=== PATIENT | male | born 1935 | race Caucasian/White ===

== ENCOUNTER 2019-12-07 16:59 | Inpatient (IN) | payer MEDICARE, OTHER ==
[~2019-12-07] VITALS: Ht 180.3 cm; Wt 75.1 kg
[2019-12-07 18:27] VITALS: BP 171/83
--- NOTE | 2019-12-07 18:47 | NUR ---
PATIENT IN WITH C/O RIGHT HIP PAIN AFTER FALLING THIS AFTERNOON. STATES HE WAS REACHING FOR SOMETHING WHEN HE LOST HIS BALANCE AND FELL, DENIES LOC. PATIENT LIVES BY HIMSELF, NO OBVIOUS DEFORMITY. FRIEND TO BEDSIDE.
--- NOTE | 2019-12-07 19:04 | NUR ---
PATIENT ISN'T SURE OF HIS HOME MEDICATIONS, HE USES [facility], I CALLED THE 1 800 NUMBER, WASN'T ABLE TO SPEAK WITH ANYONE. PATIENT FRIEND LEFT TO GO GET PATIENTS MEDICATIONS.
[2019-12-07] MEDS ORDERED: PRAVACHOL20 MG PO (19:27)
[2019-12-07] MEDS ORDERED: FLOMAX0.4 MG PO (19:28)
[2019-12-07] MEDS ORDERED: LISINOPRIL10 MG PO (19:28)
[2019-12-07] MEDS ORDERED: ZYLOPRIM100 MG PO (19:29)
[2019-12-07] MEDS ORDERED: PRADAXA150 MG PO (19:29)
[2019-12-07] MEDS ORDERED: PROCARDIA XL60 MG PO (19:30)
[2019-12-07] MEDS ORDERED: BYSTOLIC10 MG PO (19:30)
[2019-12-07] MEDS ORDERED: FUROSEMIDE20 MG PO (19:31)
[2019-12-07 19:41] LABS: BASOPHILS 0.2 % (0-2); EOSINOPHILS 0 % (0-7); HEMATOCRIT 41.3 % (42.0-54.0); IMMATURE GRANULOCYTES 0.3 % (0-5); MCH 29.1 pg (26.0-34.0); MCHC 31.5 g/dL (31.0-37.0); MCV 92.6 fL (80.0-100.0); MEAN PLATELET VOLUME 9.6 fL (7.4-10.4); MONOCYTES 6.2 % (2-11); NEUTROPHILS 88.3 % (40-80); PLATELET COUNT 163 10x3/uL (130-400); RBC 4.46 10x6/uL (4.20-6.10); RDW 15.4 % (11.5-14.5); WBC 11.5 10x3/uL (4.8-10.8)
[2019-12-07 19:49] VITALS: BP 184/81
[2019-12-07 19:49] LABS: INR 1.88 (0.85-1.17); PROTIME 21.4 SECONDS (11.6-15.0)
[2019-12-07 19:50] LABS: APTT 55.6 SECONDS (22.8-39.4)
[2019-12-07 20:00] LABS: CALC OSMOLALITY 280 mosm/kg (275-300); CALCIUM 8.9 mg/dL (8.5-10.1); CARBON DIOXIDE 34.7 mmol/L (21.0-32.0); CHLORIDE - SERUM 98 mmol/L (98-107); GLUCOSE 112 mg/dL (74-106); POTASSIUM - SERUM 3.2 mmol/L (3.5-5.1); SODIUM 139 mmol/L (136-145); UREA NITROGEN 19 mg/dL (7-18); eGFR NON AFRICAN AMERICAN 76 mL/min (90-120)
[2019-12-07 20:05] LABS: ALKALINE PHOSPHATASE 94 U/L (30-120); ALT (SGPT) 22 U/L (10-68); BILIRUBIN - TOTAL 3.01 mg/dL (0.2-1.3); PROTEIN - SERUM 7.3 g/dL (6.4-8.2)
[2019-12-07 21:25] VITALS: BP 169/77
--- NOTE | 2019-12-07 21:48 | NUR ---
REC'D PATIENT FROM ER. COMPLETED ASSESSMENT. CHG BATH COMPLETED. SCD AND NON-SLIP SOCK TO RIGHT LEG. PATIENT DENIES OTHER NEEDS AT THIS TIME. BED IN LOWEST POSITION AND CALL LIGHT WITHIN REACH. ENCOURAGED THE PATIENT TO CALL IF HE HAS NEEDS. WILL CONTINUE TO MONITOR.
[2019-12-07 22:24] VITALS: BP 170/76; BMI 23.4
[2019-12-08] VITALS (10 sets, daily range): BP systolic 89–166; BP diastolic 49–76; BMI 23.4
[2019-12-08 06:48] LABS: BASOPHILS 0.1 % (0-2); EOSINOPHILS 0.1 % (0-7); HEMATOCRIT 38.3 % (42.0-54.0); HEMOGLOBIN 11.7 g/dL (13.5-17.5); IMMATURE GRANULOCYTES 0.3 % (0-5); MCH 28.7 pg (26.0-34.0); MCHC 30.5 g/dL (31.0-37.0); MCV 93.9 fL (80.0-100.0); MEAN PLATELET VOLUME 9.8 fL (7.4-10.4); MONOCYTES 7.2 % (2-11); NEUTROPHILS 88.3 % (40-80); PLATELET COUNT 141 10x3/uL (130-400); RBC 4.08 10x6/uL (4.20-6.10); RDW 15.5 % (11.5-14.5); WBC 13.3 10x3/uL (4.8-10.8)
[2019-12-08 07:22] LABS: INR 1.96 (0.85-1.17)
--- NOTE | 2019-12-08 07:38 | NUR ---
AWAKE AND ALERT. ORIENTED X3. NO C/O AT THIS TIME. STATED PAIN IS THERE BUT IM OK FOR NOW. LUNGS ARE CLEAR BILATERALLY, NO COUGH NOTED. SKIN IS INTACT WITHOUT REDNESS. IV TO LEFT FOREARM IS PATENT WITHOUT REDNESS AT INSERTION SITE. BREAKFAST SERVED IN ROOM. DENIES NEEDS.
--- NOTE | 2019-12-08 08:30 | HP ---
PATIENT: LUCA CHIRINOS MEDICAL RECORD: [id number] ACCOUNT: [id number] LOCATION:[address] : [birth year] ADMISSION DATE: 12/07/19 PCP: No PCP HISTORY AND PHYSICAL EXAMINATION DATE OF ADMISSION: 12/07/2019 CHIEF COMPLAINT: Left hip pain. HISTORY OF PRESENT ILLNESS: This is an 84-year-old white male brought by ambulance complaining of left hip pain after a fall. 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 He was in his kitchen and turned and fell. In the ER, x-ray of his left hip showed an acute angulated displaced left femoral neck fracture. He is admitted. PAST MEDICAL AND SURGICAL HISTORY: Arthritis, asbestosis, atrial fibrillation, coronary artery disease, hypertension, and hyperlipidemia. PAST SURGICAL HISTORY: Pacemaker, cataract repair, coronary stents, cholecystectomy, and left BKA years ago. ALLERGIES: HYDROCODONE. CURRENT MEDICATIONS: Tamsulosin 0.4 mg once a day, Lasix 20 mg once a day, pravastatin 20 mg once a day, Bystolic 20 mg once a day, nifedipine ER 60 once a day, Pradaxa 150 mg once daily, allopurinol 100 mg once a day, lisinopril 10 mg once a day. HABITS: Former smoker. No alcohol or drugs. SOCIAL HISTORY: Retired, . FAMILY HISTORY: Father at old age, at age 90 and mother of old age, at age 94. REVIEW OF SYSTEMS: GENERAL: No major weight changes. HEENT: No particular sinus or allergy problems. RESPIRATORY: He has had a history of asbestosis. CARDIAC: He has atrial fibrillation, sick sinus syndrome, coronary artery disease. He has a pacemaker and has stents. GASTROINTESTINAL: He has occasional heartburn. GENITOURINARY: He has BPH. MUSCULOSKELETAL: Arthritis, aches and pains. NEUROLOGIC: No seizures. No migraines. PSYCHIATRIC: Denies depression or melancholia. PHYSICAL EXAMINATION: VITAL SIGNS: Temperature 98.1, pulse 75, respirations 20, blood pressure 171/83 in the Emergency Department. GENERAL: He is awake, alert, and pains under pretty good control right now. HEENT: Unremarkable. NECK: Supple. No JVD or bruit. HEART: Currently, regular rate and rhythm. LUNGS: Fairly clear. HISTORY AND PHYSICAL [id number] BROWN,LUCA E ABDOMEN: Soft. EXTREMITIES: He is status post left BKA. He has pain in the left hip area. LABORATORY DATA: CBC with a white count of 11,500, hemoglobin 13, hematocrit 41. Basic metabolic panel: Sodium 139, potassium 3.2, chloride 98, CO2 34.7, BUN 19, creatinine 1.0, glucose 112, calcium 8.8, total bilirubin is elevated at 3. Other liver functions are negative. INR is a 1.88. DIAGNOSTIC DATA: Chest x-ray shows moderate congestion. X-ray of the left hip shows acute angulated displaced left femoral neck fracture. ASSESSMENT: 1. Left hip fracture. 2. History of atrial fibrillation, on Pradaxa. 3. History of sick sinus syndrome with pacemaker. PLAN: Ortho has been consulted. We will consult cardiology for surgical clearance, replace potassium, diurese a little. Other tests and procedures as warranted. TRANSINT:[id number] Voice Confirmation ID: [id number] DOCUMENT ID: [id number] EFRA HOFFMAN MD at 0830 CC: [id number] DICTATION DATE: 12/08/19 014 HOUSEKEEPING ASSISTANT: 12/08/19 0802 ADM IN [facility] [address] [place] [address]
[2019-12-08 08:59] LABS: ALBUMIN 3.2 g/dL (3.4-5.0); ALKALINE PHOSPHATASE 77 U/L (30-120); ALT (SGPT) 21 U/L (10-68); CALC OSMOLALITY 285 mosm/kg (275-300); CALCIUM 8.4 mg/dL (8.5-10.1); CARBON DIOXIDE 35.4 mmol/L (21.0-32.0); CHLORIDE - SERUM 102 mmol/L (98-107); GLUCOSE 106 mg/dL (74-106); PROTEIN - SERUM 6.2 g/dL (6.4-8.2); SODIUM 142 mmol/L (136-145); UREA NITROGEN 20 mg/dL (7-18); eGFR NON AFRICAN AMERICAN 76 mL/min (90-120)
[2019-12-08 09:00] LABS: POTASSIUM - SERUM 3.7 mmol/L (3.5-5.1)
--- NOTE | 2019-12-08 13:42 | NUR ---
OFF UNIT VIA BED FOR SURGERY.
--- NOTE | 2019-12-08 16:10 | NUR ---
PT RECIEVED FROM OR. ICE APPLIED TO R HIP. DRSG CDI. PT ON BIPAP 95% O2 SAT 100% DENIES NEEDS WILL CONTINUE TO MONITOR VSS
--- NOTE | 2019-12-08 16:53 | NUR ---
SPOKE WITH SISTER, MICHAEL CHIRINOS ABOUT CURRENT SITUATION. ALL QUESTIONS ANSWERED. ALSO SPOKE WITH FRIEND, MRS. CRUZ ABOUT CURRENT SITUATION. ALL QUESTIONS ANSWERED.
--- NOTE | 2019-12-08 19:00 | NUR ---
Report received from off going nurse. Pt is laying in bed with eyes closed at this time. Pt's IV came out when starting IV fluids. New IV started to Left hand, pt's gown and top linens changed due to blood getting on them. Initial assessment completed, see flowsheet for details. Pt is on the bipap at 95%, o2 saturation is in the upper 90's, put patient on high flow NC at 10L to take medications, o2 saturations are anywhere from 90-96%. Will continue to monitor closely.
--- NOTE | 2019-12-08 21:00 | NUR ---
Pt is laying in bed with eyes closed at this time. No needs voiced. No s/s of distress. Will continue to monitor.
--- NOTE | 2019-12-08 23:00 | NUR ---
Reassessment completed, see flowsheet for details. Pt is laying in bed with eyes closed at this time. No further needs voiced at this time. No s/s of distress. Will continue to monitor.
[2019-12-09] VITALS (23 sets, daily range): BP systolic 85–131; BP diastolic 41–62
--- NOTE | 2019-12-09 01:00 | NUR ---
Pt is laying in bed with eyes closed. No needs voiced. No s/s of distress noted. Will continue to monitor.
--- NOTE | 2019-12-09 03:00 | NUR ---
Reassessment completed, see flowsheet for details. Pt is laying in bed with eyes closed. No needs voiced. No s/s of distress noted. Will continue to monitor.
[2019-12-09 04:47] LABS: HEMATOCRIT 32.8 % (42.0-54.0); MCH 28.6 pg (26.0-34.0); MCHC 30.5 g/dL (31.0-37.0); MCV 93.7 fL (80.0-100.0); MEAN PLATELET VOLUME 9.7 fL (7.4-10.4); RBC 3.5 10x6/uL (4.20-6.10); RDW 15.2 % (11.5-14.5); WBC 12.2 10x3/uL (4.8-10.8)
--- NOTE | 2019-12-09 05:00 | NUR ---
Pt is laying in bed with eyes closed. No needs voiced. No s/s of distress. Will continue to monitor.
--- NOTE | 2019-12-09 07:00 | NUR ---
REPORT RECEIVED. ASSESSMENT COMPLETE PER FLOW SHEET. VSS. PT RESTING COMFORTABLY WILL CONTINUE TO MONITOR
--- NOTE | 2019-12-09 08:45 | NUR ---
DR MOURA AT BEDSIDE GIVEN UPDATE. NEW ORDERS RECEIVED
[2019-12-09 08:49] LABS: CALCIUM 7.6 mg/dL (8.5-10.1); CARBON DIOXIDE 36.7 mmol/L (21.0-32.0); CREATININE - SERUM 1.5 mg/dL (0.6-1.3); POTASSIUM - SERUM 3.7 mmol/L (3.5-5.1)
--- NOTE | 2019-12-09 09:40 | NUR ---
BENJAMÍN WITH DR MAURICIO AT BEDSIDE GIVEN UPDATE NEW ORDERS RECIEVED
--- NOTE | 2019-12-09 11:15 | NUR ---
REASSESSMENT COMPLETE PER FLOW SHEET. VSS. PT RESTING COMFORTABLY WILL CONTINUE TO MONITOR
--- NOTE | 2019-12-09 13:53 | NUR ---
RT, STEPHANIE AT BEDSIDE, ABG DRAWN
--- NOTE | 2019-12-09 14:15 | NUR ---
1405 BTB WITH ASSIST FROM PT, TOLERATED TRANSFER WITHOUT DIFFICULTY 1415 ABG COMPLETE, CO2 IN THE 50'S, BIPAP ON 13/04 WITH 60% FIO2, PT AAO
--- NOTE | 2019-12-09 15:00 | NUR ---
REASSESSMENT COMPLETE PER FLOW SHEET. VSS. PT RESTING COMFORTABLY WILL CONTINUE TO MONITOR
--- NOTE | 2019-12-09 17:49 | MORECARE ---
CASE MANAGEMENT DISCHARGE SUMMARY PATIENT: LUCA CHIRINOS UNIT: [id number] ADM DATE: 12/07/19 AGE: 84 : 35 SEX: M ROOM/BED: [facility] AUTHOR: CONCHITA HURT PHYSICIAN: REFERRING PHYSICIAN: EFRA HOFFMAN MD DATE OF SERVICE: 12/09/19 Discharge Plan Patient Name: LUCA CHIRINOS [facility] : 1935 Planned Disposition: Inpatient Rehab Anticipated Discharge Date: Discharge Date: Expected LOS: Initial Reviewer: [email or web address] Initial Review Date: 12/07/2019 Generated: 12/09/19 6:48 pm Coverage Notice Reviewer: [email or web address] Ba Vo Notice Issued Date-Time: 12/07/2019 20:00 Notice Type: IM Admission Notice Notice Delivered To: Patient Relationship to Patient: Business Communications Instructor Name: Delivery Method: - Yamilex Days: Prior Verbal Notification: Recipient Understood Notice: Recipient Signature: Med Rec Note Co-signed by Attending: Coverage Notice Comment: ADMIT IMM ON CHART signed by the patient ON THE chart. Patient Name: LUCA CHIRINOS Page [phone] at 1749 All edits/amendments must be made on the electronic document DICTATION DATE: 12/09/191747 WHITE SHOE RAGGER: BHARATHI 12/09/191747 RPT#: [id number] DC DATE: STATUS: ADM IN [facility] [address] [place] [address] END OF REPORT
--- NOTE | 2019-12-09 17:55 | MORECARE ---
CASE MANAGEMENT DISCHARGE SUMMARY PATIENT: LUCA CHIRINSO UNIT: [id number] ADM DATE: 12/07/19 AGE: 84 : 35 SEX: M ROOM/BED: [facility] AUTHOR: CONCHITA HURT PHYSICIAN: REFERRING PHYSICIAN: EFRA HOFFMAN MD DATE OF SERVICE: 12/09/19 Discharge Plan Patient Name: LUCA CHIRINOS Facility: [facility]:[place] : 1935 Planned Disposition: Inpatient Rehab Anticipated Discharge Date: Discharge Date: Expected LOS: Initial Reviewer: [email or web address] Initial Review Date: 12/07/2019 Generated: 12/09/19 6:55 pm DCPIA - Discharge Planning Initial Assessment Updated by [email or web address]: Abigail Roth on 12/09/19 5:51 pm * Is the patient Alert and Oriented? Yes * How many steps to enter\exit or inside your home? RAMP * PCP MARTELL * Pharmacy [facility] * Preadmission Environment Home Alone * ADLs Independent * Other Equipment WALKER, CANE, W/C, SHOWER HC ACCESS, BSC, HOME 02 / PORTABLE 02 * List name and contact numbers for known caregivers / representatives who currently or will assist patient after discharge: TAMMI CRUZ - FRIEND - [phone] ARUNA Cosme NEPHEW - [phone] * Verbal permission to speak to the caregivers and representatives has been obtained from the patient. Yes * Community resources currently utilized None * Additional services required to return to the preadmission environment? No * Can the patient safely return to the preadmission environment? Yes * Has this patient been hospitalized within the prior 30 days at any hospital? No Coverage Notice Reviewer: [id number] - Vivien Vo Notice Issued Date-Time: 12/07/2019 20:00 Notice Type: IM Admission Notice Notice Delivered To: Patient Relationship to Patient: Veterinary Epidemiologist Name: Delivery Method: - Yamilex Days: Prior Verbal Notification: Recipient Understood Notice: Recipient Signature: Med Rec Note Co-signed by Attending: Coverage Notice Comment: ADMIT IMM ON CHART signed by the patient ON THE chart. Last DP export: 12/09/19 4:49 p Patient Name: LUCA CHIRINOS Page [phone] at 1755 All edits/amendments must be made on the electronic document DICTATION DATE: 12/09/191754 DOUGH MAKER: BHARATHI 12/09/191754 RPT#: [id number] DC DATE: STATUS: ADM IN [facility] [address] [place] [address] END OF REPORT
--- NOTE | 2019-12-09 18:03 | MORECARE ---
CASE MANAGEMENT DISCHARGE SUMMARY PATIENT: LUCA CHIRINOS UNIT: [id number] ADM DATE: 12/07/19 AGE: 84 : 35 SEX: M ROOM/BED: [facility] AUTHOR: BLU,DOC PHYSICIAN: REFERRING PHYSICIAN: EFRA HOFFMAN MD DATE OF SERVICE: 12/09/19 Discharge Plan Patient Name: LUCA CHIRINOS Facility: [facility]:[place] : 1935 Planned Disposition: Inpatient Rehab Anticipated Discharge Date: Discharge Date: Expected LOS: Initial Reviewer: [email or web address] Initial Review Date: 12/07/2019 Generated: 12/09/19 7:03 pm Comments DCP- Discharge Planning Updated by [email or web address]: Abigail Roth on 12/09/19 4:[address] Patient Name: LUCA CHIRINOS Admission Status: ER Accout number: [id number] Admission Date: 12-07-2019 : 1935 Admission Diagnosis: Attending: EFRA HOFFMAN Current LOS: 2 Anticipated DC Date: Planned Disposition: Inpatient Rehab Primary Insurance: MEDICARE A & B Discharge Planning Comments: CM met with patient to complete initial dc planning assessment. CM educated patient on the CM role and verbal consent given by patient to complete assessment. CM verified patient's address, phone number, and emergency contact phone numbers. Patient lives at home independently. At discharge patient plans to return home and feels that his neighbor Tammi Brumfield [phone] can help take care of him. CM doesn't feel this is safe discharge at this time. CM suggested inpatient rehab and he agreed to see what physical therapy suggest. Patient states he has home / 02, walker, cane, w/c, bedside commode and handicap accessible shower. CM will continue to follow and will assist as needed with dc plans/needs. Field Sales Consultant: Abigail Roth DCPIA - Discharge Planning Initial Assessment Updated by [email or web address]: Abigail Roth on 12/09/19 5:51 pm * Is the patient Alert and Oriented? Yes * How many steps to enter\exit or inside your home? RAMP * PCP MARTELL * Pharmacy [facility] * Preadmission Environment Home Alone * ADLs Independent * Other Equipment WALKER, CANE, W/C, SHOWER HC ACCESS, BSC, HOME * List name and contact numbers for known caregivers / representatives who currently or will assist patient after discharge: TAMMI BRUMFIELD - FRIEND - [phone] ARUNA MONTGOMERY - [phone] * Verbal permission to speak to the caregivers and representatives has been obtained from the patient. Yes * Community resources currently utilized None * Additional services required to return to the preadmission environment? No * Can the patient safely return to the preadmission environment? Yes * Has this patient been hospitalized within the prior 30 days at any hospital? No Coverage Notice Reviewer: [email or web address] Ba Vo Notice Issued Date-Time: 12/07/2019 20:00 Notice Type: IM Admission Notice Notice Delivered To: Patient Relationship to Patient: Aluminum Siding Applicator Name: Delivery Method: - Yamilex Days: Prior Verbal Notification: Recipient Understood Notice: Recipient Signature: Med Rec Note Co-signed by Attending: Coverage Notice Comment: ADMIT IMM ON CHART signed by the patient ON THE chart. Last DP export: 12/09/19 4:56 p Patient Name: LUCA CHIRINOS Page [phone] at 1803 All edits/amendments must be made on the electronic document DICTATION DATE: 12/09/191802 SPA SUPERVISOR: BHARATHI 12/09/191802 RPT#: [id number] DC DATE: STATUS: ADM IN [facility] [address] [place] [address] END OF REPORT
--- NOTE | 2019-12-09 19:00 | NUR ---
Report received from off going nurse. Pt is laying in bed with eyes closed. Initial assessment completed, see flowsheet for details. No needs voiced. No s/s of distress noted. Will continue to monitor.
--- NOTE | 2019-12-09 21:00 | NUR ---
Pt is laying in bed watching tv at this time. No s/s of distress. Asked pt if we could take a bath before bed and he requested that we wait until in the morning. No needs at this time. No s/s of distress. Will continue to monitor.
--- NOTE | 2019-12-09 23:00 | NUR ---
Reassessment completed, see flowsheet for details. Pt is laying in bed watching tv at this time. No needs voiced. No s/s of distress noted. Will continue to monitor.
[2019-12-10] VITALS (14 sets, daily range): BP systolic 89–98; BP diastolic 41–53
--- NOTE | 2019-12-10 01:00 | NUR ---
Pt is laying in bed with eyes closed. No needs voiced at this time. No s/s of distress. Will continue to monitor.
--- NOTE | 2019-12-10 03:00 | NUR ---
Reassessment completed, see flowsheet for details. Pt is laying in bed with eyes closed. No needs voiced. No s/s of distress. Will continue to monitor.
[2019-12-10 04:09] LABS: BASOPHILS 0.2 % (0-2); EOSINOPHILS 4.2 % (0-7); HEMATOCRIT 28.7 % (42.0-54.0); HEMOGLOBIN 8.9 g/dL (13.5-17.5); IMMATURE GRANULOCYTES 0.4 % (0-5); LYMPHOCYTES 7.7 % (15-50); MCH 28.5 pg (26.0-34.0); MEAN PLATELET VOLUME 9.3 fL (7.4-10.4); MONOCYTES 12.9 % (2-11); NEUTROPHILS 74.6 % (40-80); PLATELET COUNT 126 10x3/uL (130-400); RBC 3.12 10x6/uL (4.20-6.10); RDW 15.4 % (11.5-14.5)
[2019-12-10 04:28] LABS: ANION GAP 5.4 mmol/L (8-16); CALCIUM 7.6 mg/dL (8.5-10.1); CARBON DIOXIDE 36.2 mmol/L (21.0-32.0); CREATININE - SERUM 2.3 mg/dL (0.6-1.3); POTASSIUM - SERUM 3.6 mmol/L (3.5-5.1)
--- NOTE | 2019-12-10 05:00 | NUR ---
Pt is resting in bed. Complete bed bath and linen change performed. No s/s of distress. Will continue to monitor.
--- NOTE | 2019-12-10 09:30 | NUR ---
OOB BED TO CHAIT WITH PT.
--- NOTE | 2019-12-10 11:00 | NUR ---
BACK TO BED WITH ASSISTANCE.
--- NOTE | 2019-12-10 13:02 | NUR ---
Nutrition Follow-up: Fair appetite/PO intake. Reports eating ~50% of breakfast this AM. Denies N/V. Agreed to Ensure with meals. Reports last BM ~4 days ago; typically goes q 2 days. Diet: Regular Wt: 169.7# (12/09); 168# (12/06) Labs noted: Glu 131, Ca 7.6 Meds reviewed -+Ensure with meals. -Monitor wt. -RD following.
--- NOTE | 2019-12-10 13:59 | NUR ---
Rehab Note- Acute Inpatient Rehab prescreen order received. The patient currently is on 5L Oxymizer and low level, will follow at this time. Thank you for this referral! Urszula Stevenson RN Clinical Liaison, [facility] Rehab
--- NOTE | 2019-12-10 19:00 | NUR ---
Report received from off going nurse. Pt is resting in bed at this time. No s/s of distress noted. Initial assessment completed, see flowsheet for details. Will continue to monitor.
--- NOTE | 2019-12-10 21:00 | NUR ---
Pt is laying in bed with eyes closed at this time. No needs voiced. No s/s of distress noted. Will continue to monitor.
--- NOTE | 2019-12-10 23:00 | NUR ---
Reassessment completed, see flowsheet for details. Pt is laying in bed with eyes closed. Repositioned for comfort. No further needs noted. No s/s of distress noted. Will continue to monitor.
[2019-12-11] VITALS (18 sets, daily range): BP systolic 95–111; BP diastolic 45–59; Ht 180.3 cm; Wt 75.1 kg
--- NOTE | 2019-12-11 01:00 | NUR ---
Pt is laying in bed with eyes closed. No needs voiced. no s/s of distress noted. Will continue to monitor.
--- NOTE | 2019-12-11 03:00 | NUR ---
Reassessment completed, see flowsheet for details. Pt is laying in bed with eyes closed at this time. No needs voiced. No s/s of distress noted. Will continue to monitor.
[2019-12-11 04:20] LABS: BASOPHILS 0.2 % (0-2); EOSINOPHILS 5.6 % (0-7); HEMATOCRIT 28.9 % (42.0-54.0); HEMOGLOBIN 8.9 g/dL (13.5-17.5); IMMATURE GRANULOCYTES 0.2 % (0-5); LYMPHOCYTES 9.8 % (15-50); MCH 28.3 pg (26.0-34.0); MCHC 30.8 g/dL (31.0-37.0); MEAN PLATELET VOLUME 9.9 fL (7.4-10.4); MONOCYTES 13.2 % (2-11); PLATELET COUNT 138 10x3/uL (130-400); RBC 3.14 10x6/uL (4.20-6.10); RDW 15.1 % (11.5-14.5); WBC 6.6 10x3/uL (4.8-10.8)
[2019-12-11 05:00] LABS: ANION GAP 8.9 mmol/L (8-16); CALCIUM 7.4 mg/dL (8.5-10.1); CARBON DIOXIDE 33.9 mmol/L (21.0-32.0); POTASSIUM - SERUM 3.8 mmol/L (3.5-5.1)
--- NOTE | 2019-12-11 05:00 | NUR ---
Pt is resting in bed with eyes closed. No needs voiced. No s/s of distress noted. Will continue to monitor.
[2019-12-11 05:13] LABS: CREATININE - SERUM 3.1 mg/dL (0.6-1.3)
--- NOTE | 2019-12-11 07:00 | NUR ---
SHIFT REPORT RECEIVED. PT RESTING COMFORTABLY IN BED. ON 4L O2 VIA NC. NO FEVER NOTED. L HIP DRESING IN PLACE. PT DENIES PAIN AT THIS TIME. URINAL AT BEDSIDE. SAFETY MEASURES IN PLACE. SEE FLOWSHEET FOR COMPLETE ASSESSMENT. WILL CONTINUE TO MONITOR.
--- NOTE | 2019-12-11 09:27 | NUR ---
NEPROLOGY OFFICE NOTIFIED OF CONSULT.
--- NOTE | 2019-12-11 09:55 | NUR ---
IN AND OUT CATH USED AT THIS TIME PER ORDERS. 300ML OF CONCENTRATED YELLOW URINE NOTED. EVELYN LUTZ APN NOTIFIED. ORDERED 500ML BOLUS AND INCREASE FLUID TO 125ML/HR.
--- NOTE | 2019-12-11 10:45 | NUR ---
RECEIVED BEDSIDE REPORT ON PATIENT AND ASSUMED CARE.
--- NOTE | 2019-12-11 11:00 | NUR ---
HEAD TO TOE ASSESSMENT COMPLETED. VSS. IV INFUSING NS AT 500 ML/HR FOR 500 ML NS BOLUS TO LEFT HAND IV 22 GA WITH NO S/S OF INFILTRATION. TO RESTART 1/2 NS AT 125 ML/HR ONCE BOLUS COMPLETED. PATIENT ALERT AND ORIENTED X 4, BBS - CLEAR AND EQUAL, DIMINISHED IN THE BASES, RR - 22, SPO2 - 95% ON 4 LPM VIA NC. CM - PACED RHYTHM RATE OF 72. LEFT BKA NOTED AND DRESSING TO LEFT HIP CLEAN, DRY AND INTACT. PARTIAL AMBUTATIONS NOTED TO BILATERAL FINGERS TO LEFT AND RIGHT HAND, EXCEPT FOR THUMBS AND 5TH DIGIT. RIGHT GREAT TOE AMPUTATION NOTED.
--- NOTE | 2019-12-11 11:15 | NUR ---
DR. MITCHELL AT ROOM UPDATED AND EXAMINES PATIENT.
--- NOTE | 2019-12-11 11:45 | NUR ---
CAIO ACKERMANN WITH RENAL AT ROOM UPDATED AND EXAMINES PATIENT.
--- NOTE | 2019-12-11 11:55 | NUR ---
PATIENT UP TO BEDSIDE CHAIR WITH PT FOR LUNCH. VSS.
--- NOTE | 2019-12-11 13:29 | NUR ---
PATIENT BACK TO BED. VSS. CXR OBTAINED.
--- NOTE | 2019-12-11 13:44 | NUR ---
[place] CATH PLACED PER RENAL FOR I AND O. UA AND CULTURE SENT TO LAB. 42 CC RADHA CLEAR UOP OBTAINED.
[2019-12-11 14:40] LABS: BILIRUBIN NEGATIVE (NEGATIVE); GLUCOSE NEGATIVE (NEGATIVE); KETONE NEGATIVE (NEGATIVE); NITRITE NEGATIVE (NEGATIVE); UROBILINOGEN NORMAL (NORMAL)
[2019-12-11 14:41] LABS: BACTERIA MODERATE /hpf (NEGATIVE); EPITHELIAL CELLS 0-5 /hpf (0-5); RED CELLS - URINE 0-5 /hpf (0-5)
--- NOTE | 2019-12-11 17:21 | NUR ---
US AT ROOM FOR RENAL ULTRASOUND.
[2019-12-12] VITALS (50 sets, daily range): BP systolic 00–139; BP diastolic 00–64
[2019-12-12 05:38] LABS: BASOPHILS 0.1 % (0-2); EOSINOPHILS 3.8 % (0-7); HEMATOCRIT 28.9 % (42.0-54.0); IMMATURE GRANULOCYTES 0.1 % (0-5); LYMPHOCYTES 6.8 % (15-50); MCH 28.4 pg (26.0-34.0); MCHC 31.1 g/dL (31.0-37.0); MCV 91.2 fL (80.0-100.0); MONOCYTES 16.6 % (2-11); NEUTROPHILS 72.6 % (40-80); PLATELET COUNT 165 10x3/uL (130-400); RBC 3.17 10x6/uL (4.20-6.10); RDW 14.9 % (11.5-14.5); WBC 7.2 10x3/uL (4.8-10.8)
[2019-12-12 05:52] LABS: ANION GAP 8.2 mmol/L (8-16); CALCIUM 7.7 mg/dL (8.5-10.1); CARBON DIOXIDE 33.4 mmol/L (21.0-32.0); CREATININE - SERUM 3.3 mg/dL (0.6-1.3)
[2019-12-12 05:53] LABS: POTASSIUM - SERUM 4.6 mmol/L (3.5-5.1)
--- NOTE | 2019-12-12 07:57 | NUR ---
RECIEVED AWAKE AND ALERT-POSITIONED TO R SIDE -L HIP DRG SATURATED-REMOVED ADN AG INFUSED REPLACED PREVIOUS-INCISON LINE WELL INTACT WITH PIETER AND NO DRAINAGE OR REDNESS NOTED-PT POSTIONED TO R -L LATERAL RALES AUDIBLE-CLEAR ANTERIOR NOTED-DR MOURA AT BEDSIDE
--- NOTE | 2019-12-12 09:46 | OP ---
PATIENT NAME: LUCA CHIRINOS MEDICAL RECORD: [id number] :[birth year] LOCATION:[id number] ADMISSION DATE:12/07/19 SURGEON: SHANDA MAURICIO MD DATE OF OPERATION: 12/08/2019 PREOPERATIVE DIAGNOSES: 1. Displaced left hip fracture. 2. Below knee amputation on the left. POSTOPERATIVE DIAGNOSES: 1. Displaced left hip fracture. 2. Below knee amputation on the left. PROCEDURE: Bipolar endoprosthesis of the left hip. SURGEON: Shanda Mauricio MD ANESTHESIA: General. INTRAOPERATIVE COMPLICATIONS: None. SUMMARY OF PATHOLOGIC FINDINGS: Consistent with preoperative diagnosis, the patient had a femoral neck fracture that was displaced. OPERATIVE SUMMARY IN DETAIL: After obtaining the appropriate preoperative orthopedic surgery consent as well as anesthetic consultation, evaluation and clearance, the patient was brought to the operating room and placed on the operating table in supine position. After adequate general laryngeal mask airway was administered, the patient was placed in a right lateral decubitus position. All pressure points were well padded to include down leg peroneal pad as well as axillary roll. The patient was held firmly to the operating table using the vacuum pack suction system. The right lower extremity and hip were then prepped and draped in routine sterile fashion. Appropriate timeout was taken. Curvilinear incision was made over the greater trochanter and taken down over the IT band, split in line with fibers of the IT band to reveal the gluteus medius and minimus attachment. These were reflected anteriorly. The hip capsule was split in a T-type fashion. Appropriate fracture hematoma was evacuated. Femoral neck cut was made using the femoral neck cutting guide. This was followed by extraction of the femoral head. Femoral head extraction was then followed by complete lavage and closure of the acetabulum. At this point, serial and sequential reaming and broaching were done of the proximal aspect of the femur for the size 5 Accolade II stem that had a -3, 26 head on a 45-mm outside diameter bipolar component. This was articulated and reduced, found to have excellent overall stability. Radiographs were taken. The wound was then closed in usual fashion with #2 Ethibond, followed by #5 Ethibond, followed by #2 Ethibond and then #1 Vicryl, 2-0 Vicryl, and skin estrella. Sterile dressings were applied. The patient was awakened and taken to recovery room in stable condition. All final needle and sponge counts were correct. TRANSINT:[id number] Voice Confirmation ID: [id number] DOCUMENT ID: [id number] OPERATIVE REPORT [id number] LUCA CHIRINOS MD, SHANDA FIORE at 0946 CC: [id number] DICTATION DATE: 12/12/19 0551 RN ENDOSCOPY: 12/12/19 0822 ADM IN [place] [address] [place] [address]
--- NOTE | 2019-12-12 10:35 | NUR ---
0930-ORTHO JEREMY LEGAL TRANSCRIBER-AT BEDSIDE-DIRECTION GIVEN-NO PROSTHETIC TO L AKA-EST TIME 6 WEEKS-COMPLETE ASSIST TO CHAIR -BY TWO MALE ASSISTS-PT MADE NO ATTEMPT TO WEIGHT BEAR ON R LEG 1015-PT REQUESTED TO RETURN TO BED-OBTAINED 2 MALE ASSIST-AND STRESSED TO BEAR WEIGHT TO R LEG FOR ASSIST-NOTABLE ASSIST BY PT 1030-RENAL SERVICES AT BEDSIDE
--- NOTE | 2019-12-12 11:15 | NUR ---
Nutrition Follow-up: Pt reports that he has not been eating very well. Breakfast appeared mostly untouched; pt reports he had a rough night. Mild nausea but improving. Diet: Regular, Ensure TID PO intake: 20-50% Wt: 175.2# (12/10); 169.7# (12/09) Last BM: GEOPOLITICS TEACHER Labs noted: Na 135, Glu 117, Ca 7.7 Meds noted: Miralax -Encourage PO intake and honor food preferences. -Monitor wt. -RD following.
--- NOTE | 2019-12-12 15:15 | NUR ---
RESPONDING TO APNEA ALARM-PT NON RESPONSIVE-NO RESP EFFORT-NOTED AFIB MONITOR-WITH WEAK CAROTID-CODE BLUE CALLED-SEE RECORD
[2019-12-12 17:52] LABS: BASOPHILS 0.2 % (0-2); EOSINOPHILS 1.1 % (0-7); HEMATOCRIT 30.3 % (42.0-54.0); HEMOGLOBIN 9.2 g/dL (13.5-17.5); IMMATURE GRANULOCYTES 0.6 % (0-5); LYMPHOCYTES 32.4 % (15-50); MCH 28.7 pg (26.0-34.0); MCHC 30.4 g/dL (31.0-37.0); MEAN PLATELET VOLUME 10.7 fL (7.4-10.4); NEUTROPHILS 48.7 % (40-80); PLATELET COUNT 195 10x3/uL (130-400); RBC 3.21 10x6/uL (4.20-6.10); RDW 14.9 % (11.5-14.5)
[2019-12-12 17:55] LABS: MCV 94.4 fL (80.0-100.0); WBC 12.7 10x3/uL (4.8-10.8)
[2019-12-12 18:13] LABS: ALBUMIN 2.6 g/dL (3.4-5.0); ANION GAP 13.8 mmol/L (8-16); BILIRUBIN - TOTAL 0.96 mg/dL (0.2-1.3); CALCIUM 8.1 mg/dL (8.5-10.1); CARBON DIOXIDE 28.6 mmol/L (21.0-32.0); CREATININE - SERUM 3.7 mg/dL (0.6-1.3); MAGNESIUM - SERUM 2.4 mg/dL (1.8-2.4); PROTEIN - SERUM 5.3 g/dL (6.4-8.2); TROPONIN-I 0.044 ng/mL (0.000-0.060)
[2019-12-12 18:19] LABS: POTASSIUM - SERUM 5.4 mmol/L (3.5-5.1)
--- NOTE | 2019-12-12 18:30 | NUR ---
314-POST CODE-SIGNIFICANT OTHER AT BEDSIDE-STATUS REPORT GIVEN-REQUESTED POA CONTACT-STATED WILL CONTACT "MICHAEL"-IN [place]-NOTED INTUBATED VENT SETTINGS-PT NON RESPONSIVE-SOFT WRIST RESTRAINTS FOR INTUBATION PROTECTION-- CRITICAL STATUS-DR LEUNG CALLED REGARDING UPDATE WITH EVENTS-AND NIBP-68/44-LEVOPHED STARTED ORDERED-TITRATED TO 20MC-NO CHANGE-DR LEUNG REQUESTED PULMONOLOGY TO ASSIST WITH BP CONTROL--DR MITCHELL PG'D-RETURN CALL-STATUS REPORT-VASOPRESSIN 0.04 UNITS STARTED-- 1814-NO CHANGES-LEVOPHED WEANED OFF-VASOPRESSIN AT 0.04 UNITS/H
--- NOTE | 2019-12-12 19:00 | NUR ---
PT ASSESSMENT COMPLETED AT THIS TIME, PT IS ON VENT SUPPORT WITH NO SEDATION, PT IS OPENING EYES AND AND MOVING LOWER EXT. NO CHANGES NOTED FROM NURSE REPORT, VSS AT THIS TIME ON VASOPRESSOR SUPPORT, WILL MONITOR AND TITRATE NEEDED
--- NOTE | 2019-12-12 19:57 | NUR ---
NURSE SHANNAN RN CALLED ON-CALL WITH PATIENT UP DATE, NEW ORDERS NOTED
--- NOTE | 2019-12-12 20:50 | NUR ---
PT TAKEN TO CT AT THIS TIME
--- NOTE | 2019-12-12 21:02 | NUR ---
PT RETURNED FROM CT, NO CHANGES IN PT STATUS, WILL MONITOR FOR CHANGES
--- NOTE | 2019-12-12 22:30 | NUR ---
IV STARTED TO LEFT UPPER ARM DUE TO RIGHT ARM WEAPING SEROUS DRAINAGE, IV IN LEFT ARM, INTACT WITH GOOD BLOOD RETURN AND FLUSHES WELL, WILL LEAVE SALINE LOCKED AT THIS TIME.
--- NOTE | 2019-12-12 23:00 | NUR ---
PT REASSESSMENT COMPLETED AT THIS TIME, PT REMAINS ON VENT SUPPORT, PT IS NOT ON SEDATION, PT OPENS EYES TO VOICE AND BITE DOWN WITH ORAL SUCTION, VSS, TITRATING DOWN PRESSORS, VSS AT THIS TIME, WILL MONITOR FOR CHANGES
[2019-12-13] VITALS (36 sets, daily range): BP systolic 104–149; BP diastolic 48–71
--- NOTE | 2019-12-13 01:00 | NUR ---
pt on vent support, levophed off and vassopressin turned off at this time, vss, will monitor for changes
--- NOTE | 2019-12-13 03:00 | NUR ---
PT REASSESSMENT COMPLETED AT THIS TIME, NO CHANGES NOTED FROM PREVIOUS EXAM, PT REMAINS ON VENT SUPPORT WITH NO SEDATION. VSS AT THIS TIME, WILL MONITOR FOR CHANGES
--- NOTE | 2019-12-13 04:20 | NUR ---
LEFT HIP INCISION WAS NOTED TO STILL HAVE A LARGE AMOUNT OF SEROSANGUINOUS DRAINAGE NOTED, 4X4 SECURED OVER SITE
--- NOTE | 2019-12-13 05:06 | NUR ---
PT REMAINS ON VENT SUPPORT, VSS OFF VASOPRESSORS AT THIS TIME, WILL MONITOR FOR CHANGES
[2019-12-13 12:21] LABS: ANION GAP 14.2 mmol/L (8-16); CALCIUM 7.9 mg/dL (8.5-10.1); CREATININE - SERUM 3.8 mg/dL (0.6-1.3); POTASSIUM - SERUM 5.2 mmol/L (3.5-5.1)
--- NOTE | 2019-12-13 16:52 | NUR ---
0715-RECIEVED PER FLOW SHEET-REPOSITIONED TO R SIDE-L HIP DRG CHANGED -SEROUS DRAINAGE-SUCTIONED FOR LARGE AMOUNT OF THICK DARK MUCUS-PT RESPONDS TO DEEP PAINFUL STIMULI-OPENS EYES 0930-RENAL NURSE PRACTITIONER Eli BONILLA AT [facility]-STATUS REPORT GIVEN-ORDERS RECIEVED AND NOTED 1000-DR MOURA AT BEDSIDE-CURRENT UPDATE GIVEN-NO FURTHER ORDERS AT THIS TIME 1100-DR MITCHELL AT BEDSIDE-[T SIGNIFICANT OTHER AT BEDSIDE-QUESTION ADDRESSED-SIGNIFICANT OTHER STRESSED NOT HIS POA-ATTEMPTING TO OBTAIN TELEPHONE NUMBER OF PT SISTER IN LAW-NOT CURRENTLY AVAILABLE 1300-DR MAURICIO AT BEDSIDE-STATUS REPORT GIVEN -MADE AWARE OF SEROUS DRAINAGE FROM INCISION-NO FURTHER ORDERS AT THIS TIME
--- NOTE | 2019-12-13 19:00 | NUR ---
Patient's assessment completed this time, no changes noted from nurse report. Patient remains on ventilator support at this time, patient is still on no sedation. Patient will open eyes and respond to deep stimulation and painful stimulation. Patient vital signs are stable at this time, patient is not on any type of vasopressor support. We will continue to monitor for changes.
--- NOTE | 2019-12-13 21:00 | NUR ---
Patient getting medications down OG tube, placement was confirmed with auscultation and aspiration of gastric contents. No changes noted in the patient's condition, vital signs continue to be stable, will continue to monitor for changes.
--- NOTE | 2019-12-13 23:00 | NUR ---
pt reassessment completed at this time, no changes noted from previous exam, vss, will monitor for changes
[2019-12-14] VITALS (23 sets, daily range): BP systolic 133–156; BP diastolic 53–74
--- NOTE | 2019-12-14 01:00 | NUR ---
PT RESTING ON VENT SUPPORT WITHOUT SEDATION, VSS, WILL MONITOR FOR CHANGES
--- NOTE | 2019-12-14 03:00 | NUR ---
PT REASSESSMENT COMPLETED AT THIS TIME, NO CHANGES NOTED FROM PREVIOUS EXAM, VSS, WILL MONITOR FOR CHANGES
--- NOTE | 2019-12-14 05:04 | NUR ---
pt given CHG bath this morning and dressings changed to left hip and right arm skin tears
[2019-12-14 05:25] LABS: BASOPHILS 0.2 % (0-2); EOSINOPHILS 0.2 % (0-7); HEMATOCRIT 28.2 % (42.0-54.0); HEMOGLOBIN 9.4 g/dL (13.5-17.5); IMMATURE GRANULOCYTES 0.5 % (0-5); MCH 28.4 pg (26.0-34.0); MCHC 33.3 g/dL (31.0-37.0); MEAN PLATELET VOLUME 9.7 fL (7.4-10.4); MONOCYTES 12.5 % (2-11); NEUTROPHILS 80.6 % (40-80); PLATELET COUNT 209 10x3/uL (130-400); RBC 3.31 10x6/uL (4.20-6.10); RDW 15.1 % (11.5-14.5); WBC 12.1 10x3/uL (4.8-10.8)
[2019-12-14 05:26] LABS: MCV 85.2 fL (80.0-100.0)
[2019-12-14 05:36] LABS: ANION GAP 15.2 mmol/L (8-16); CALCIUM 8.2 mg/dL (8.5-10.1); CARBON DIOXIDE 27.9 mmol/L (21.0-32.0); CREATININE - SERUM 4.1 mg/dL (0.6-1.3); POTASSIUM - SERUM 5.1 mmol/L (3.5-5.1)
--- NOTE | 2019-12-14 08:53 | NUR ---
0730-NOTE UCAF-PACER CHANGED TO 70VVI-DR ARREOLA NOTIFIED-ORDER RECIEVED AND NOTED-CORDARONE BOLUS 150MG STARTED 814-CORDARONE BOLUS INFUSED- 30-PACED 100%70/0/10-NIBP 74/44-DR ARREOLA NOTIFIED PACER RETURNED TO 90/10/10/-PACED 100%-RETAKE BP 98/68(78) 0850-AMBULATED WITH PHYSICAL THERAPY-RETURNED TO SITTING- PACED 100% 90 NIBP 74/58-RETAKE IN 10MIN-84/62
--- NOTE | 2019-12-14 16:38 | NUR ---
1200-NOTED SAT DECREASED TO 80-LAVAGED AND SUCTIONED FOR COPIOUS THICK MUCUS PLUGS -PLACED ON 100% TAB4MQX SUCTION FOR 2MIN-SAT INCREASED TO 86%-NOTIFIED RT 1210-DR MITCHELL AT BEDSIDE AND MADE AWARE OF O2 FKH-EXIEAIW-03%-FIO2 40%-ORDER RECIEVED FOR BRONCH SETUP-POA NOTIFIED AND TELEPHONE CONSENT OBTAINED 1230-DR MOURA IN UNIT-ADDRESSED CURRENT SITUATION AND PLAN FOR BRONCH PER DR MITCHELL-DR MOURA GIVEN NUMBER FOR POA -AND CONTACTED SAME VIA TELEPHONE-ATTEMPTING TO RETRIEVE POA PAPERS FAXED WITH CONFIRMATION-JOB 418 ABLE TO BE VIEWED -NOT ABLE TO ZAYCO-MQPMW-0MKR-ORDERS RECIEVED 1245-BRONCH IN PROGRESS-DR MITCHELL AND RT AT BEDSIDE-PT TOLERATED WELL
--- NOTE | 2019-12-14 18:20 | NUR ---
REPOSITIONED -SPOKE WITH POA-
--- NOTE | 2019-12-14 19:00 | NUR ---
PT ASSESSMENT COMPLETED AT THIS TIME, NO CHANGES NOTED FROM NURSE REPORT, PT REMAINS ON VENT SUPPORT WITHOUT SWDATION, PT WILL OPEN EYES TO STIMULATION AND MOVE LEGS SLIGHTLY, NO MOVEMENT IN ARMS, VSS AT THIS TIME, WILL MONITOR FOR CHANGES
--- NOTE | 2019-12-14 21:00 | NUR ---
PT REPOSITIONED AND ORAL CARE DONE, PT OPENS EYES AND BITES DOWN ON SWABS, NO OTHER CHANGES NOTED, VSS, WILL MONITOR FOR CHANGES
--- NOTE | 2019-12-14 23:00 | NUR ---
PT REASSESSMENT COMPLETED AT THIS TIME, NO CHANGES NOTED FROM PREVIOUS EXAM, VSS, PT REMAINS ON VENT SUPPORT WITHOUT SEDATION, WILL MONITOR FOR CHANGES
[2019-12-15] VITALS (23 sets, daily range): BP systolic 134–159; BP diastolic 60–73
--- NOTE | 2019-12-15 00:30 | NUR ---
PT REASSESMENT COMPLETED AT THIS TIME, NO CHANGES NOTED FROM PREVIOUS EXAM, VSS, PT REMAINS ON VENT SUPPORT WITHOUT SEDATION, WILL MONITOR FOR CHANGES
--- NOTE | 2019-12-15 01:00 | NUR ---
PT MAINTAINS ON VENT SUPPORT, VSS, WILL MONITOR FOR CHANGES
--- NOTE | 2019-12-15 03:00 | NUR ---
PT REASSESSMENT COMPLETED AT THIS TIME, NO CHANGES NOTED FROM PREVIOUS EXAM, VSS, WILL MONITOR FOR CHANGES
--- NOTE | 2019-12-15 05:31 | NUR ---
PT GIVEN CHG BATH THIS MORNING WITH LINEN CHANGED, DRESSING CHANGED TO LEFT HIP AND RIGHT ARM, VSS
--- NOTE | 2019-12-15 07:18 | NUR ---
SHIFT REPORT RECEIVED. PT INTUBATED. NO SEDATION. VENT A/C, R-18, TV 450, PEEP 5. ETT 8.0 24 AT LIP. 20 G PIV TO BRITTANY WITH 1/2NS AT 10M/HR. DENG WRIST RESTRAINTS IN PLACE PER ORDER. OGT TO LIWS. ABOUT 100ML OF BROWN STOMACH CONTENT NOTED IN CANISTER. LAGUNA CATH IN PLACE. SAFETY MEAURES IN PLACE. WILL CONTINUE TO MONITOR.
--- NOTE | 2019-12-15 08:18 | NUR ---
VENT SWITCHED TO SIMV WITH PRESSURE SUPPORT 10 BY RT. WILL CONTINUE TO MONITOR.
--- NOTE | 2019-12-15 09:25 | NUR ---
AM MEDS GIVEN TROUGH OG TUBE.
--- NOTE | 2019-12-15 11:18 | NUR ---
CONTINUES ON SIMV RATE AT 10 AT THIS TIME. WILL CONTINUE TO MONITOR.
--- NOTE | 2019-12-15 12:48 | NUR ---
Nutrition Follow-up: Pt intubated following code blue on 12/11. Nursing reports attempting to wean. Per pulm, difficult to start TF with increased OGT OP. No BMs recorded with hypoactive BS. Noted possible hospice. Diet: NPO Wt: 176.3# (12/14); 175.2# (12/10); 168# (12/06) Labs reviewed Meds noted: Miralax -RD available to assist with nutrition support if medically indicated and/or desired. -Monitor wt. -RD following.
--- NOTE | 2019-12-15 14:19 | NUR ---
CALL RECEIVED FROM AARON CHAVES. PASS CODE VERIFIED. BRIEF UPDATE GIVEN.
--- NOTE | 2019-12-15 16:35 | NUR ---
ABG RESULTS REPORTED TO DR. SHETH. WANTS PT TO REST TONIGHT AND CPAP TOMORROW BID.
--- NOTE | 2019-12-15 19:00 | NUR ---
PT ASSESSMENT COMPLETED AT THIS TIME, NO CHANGES NOTED FROM NURSE REPORT, PT ON VENT SUPPORT, SMIV, NO SEDATION, PT RESTING CALMLY, WILL OPEN EYES AND MOVE LOWER EXT. WITH STIMULATION, VSS, WILL MONITOR FOR CHANGES
--- NOTE | 2019-12-15 20:28 | NUR ---
CRIMINAL PROFILER PAGED ABOUT PATIENTS BLEEDING NOTED FROM TONGUE NOTED WHIL[place]OING ORAL CARE, DR. ANGELA CALLED BACK AND ORDERED TO HOLD ELIQIS DOSE
--- NOTE | 2019-12-15 21:24 | NUR ---
PT REPOSTITIONED AND ORAL CARE GIVEN, SMALL AMOUNT OF BLOOD MIXED WITH ORAL SECRETIONS SUCTIONED OUT, WILL MONITOR FOR CHANGES
--- NOTE | 2019-12-15 23:00 | NUR ---
PT REASSESSMENT COMPLETED AT THIS TIME, NO CHANGES NOTED FROM PREVIOUS EXAM, VSS, WILL MONITOR FOR CHANGES
[2019-12-16] VITALS (28 sets, daily range): BP systolic 139–183; BP diastolic 60–88
--- NOTE | 2019-12-16 01:00 | NUR ---
PT REMAINS ON VENT SUPPORT, VSS, WILL MONITOR FOR CHANGES
--- NOTE | 2019-12-16 03:00 | NUR ---
PT REASSESSMENT COMPLETED AT THIS TIME, NO CHANGES NOTED FROM PREVIOUS EXAM, VSS, WILL MONITOR FOR CHANGES
--- NOTE | 2019-12-16 03:00 | NUR ---
PT REASSESSMENT COMPLETED AT THIS TIME, NO CHANGES NOTED FROM PREVIOUS EXAM, PT RESTING WITH EYES CLOSED RESP EVEN AND NON LABORED, VSS, WILL MONITOR FOR CHANGES
--- NOTE | 2019-12-16 05:00 | NUR ---
PT RESTING BED, PT HAD PORTIBLE X-RAY DONE, PT ABLE TO REPOSITION WITHOUT ASSISTANCE, PT ADVISED THAT SHE DOING OKAY AT THIS TIME, NO DISTRESS NOTED, WILL MONITOR FOR CHANGES
--- NOTE | 2019-12-16 05:00 | NUR ---
PT GIVEN CHG BATH THIS MORNING WITH COMPLETED LINEN CHANGE, DRESSING TO LEFT HIP WAS CHANGED AND DRAINAGE WAS NOTED SEROSANGUINOUS
[2019-12-16 05:19] LABS: BASOPHILS 0.1 % (0-2); EOSINOPHILS 0.5 % (0-7); HEMATOCRIT 29.4 % (42.0-54.0); HEMOGLOBIN 9.3 g/dL (13.5-17.5); IMMATURE GRANULOCYTES 0.3 % (0-5); LYMPHOCYTES 6.9 % (15-50); MCH 27.8 pg (26.0-34.0); MCHC 31.6 g/dL (31.0-37.0); MEAN PLATELET VOLUME 9.7 fL (7.4-10.4); MONOCYTES 15.7 % (2-11); NEUTROPHILS 76.5 % (40-80); PLATELET COUNT 204 10x3/uL (130-400); RBC 3.34 10x6/uL (4.20-6.10)
[2019-12-16 05:21] LABS: WBC 8.8 10x3/uL (4.8-10.8)
[2019-12-16 05:39] LABS: CREATININE - SERUM 4.4 mg/dL (0.6-1.3)
[2019-12-16 05:43] LABS: ANION GAP 45.9 mmol/L (8-16); POTASSIUM - SERUM 4.2 mmol/L (3.5-5.1)
[2019-12-16 05:50] LABS: CARBON DIOXIDE 29.4 mmol/L (21.0-32.0)
--- NOTE | 2019-12-16 08:58 | NUR ---
0700 PT RECIEVED ON VENT, OPENS EYES TO PAINFUL STIMULI AND WITHDRAWS FROM STIMULI BUT DOES NOT FOLLOW ANY COMMANDS, LUE PIV DRESSING CDI, ETT SECURED OGT TO INTERMITTENT SUCTION, PLACEMENT VERIFIED WITH AUSCULTATION/ASPIRATION, L HIP DRESSING CDI, LAGUNA DRAINING CONCENTRATED URINE, REPOSITIONED WITH PREVIOUS SHIFT 0900 AM MEDS GIVEN, HELD FLOMAX DUE TO INABILITY TO OPEN/CRUSH CAPSULE AFTER VERIFYING WITH PHARMACY. REPOSITIONED
[2019-12-16 12:09] LABS: AFB SPECIMEN PROCESSING Concentration (())
[2019-12-16 12:09] LABS: AFB SPECIMEN PROCESSING Concentration (())
--- NOTE | 2019-12-16 14:17 | NUR ---
SPOKE WITH PTS POA SISTER ANASTACIO WHO STATED SHE DID WANT PT EXTUBATED AND ON COMFORT MEASURES, DR SHETH SPOKE WITH DR MOURA AND ORDERS TOEXTUBATE RECIEVED, EXTUBATED AND RESTRAINTS REMOVED 1409. PER DR SHETH HOSPICE NOT CONSULTED
--- NOTE | 2019-12-16 19:00 | NUR ---
BEDSIDE REPORT AND SHIFT ASSESSMENT COMPLETE, SEE FLOWSHEET. PT RESPONDS TO DEEP STIMULI, UNABLE TO FOLLOW COMMANDS. L HIP INCISION DRESSING CDI. L BKA. PACEMAKER ON MONITOR, RATE 70'S. L UPPER ARM PIV PATENT, SALINE LOCKED. WILL MONITOR.
--- NOTE | 2019-12-16 23:00 | NUR ---
REASSESSMENT COMPLETE, SEE FLOWSHEET. NO CHANGES NOTED. PT RESPONDS TO PAIN. WILL CONTINUE TO MONITOR.
[2019-12-17] VITALS (8 sets, daily range): BP systolic 117–173; BP diastolic 60–71
--- NOTE | 2019-12-17 03:00 | NUR ---
REASSESSMENT COMPLETE, SEE FLOWSHEET.
--- NOTE | 2019-12-17 07:00 | NUR ---
ASSESSMENT COMPLETE PER FLOWSHEET.
--- NOTE | 2019-12-17 08:00 | NUR ---
BATH GIVEN, LINENS CHANGED.
[2019-12-17 10:09] LABS: ACID FAST SMEAR Negative (()); FUNGUS STAIN Final report (())
[2019-12-17 10:09] LABS: ACID FAST SMEAR Negative (()); FUNGUS STAIN Final report (())
--- NOTE | 2019-12-17 10:17 | NUR ---
Nutrition Follow-up: Pt extubated yesterday. Now on comfort measures. Noted hospice consulted. Diet: NPO Wt: 165.3# (12/16); 176.3# (12/14); 168# (12/08) Labs reviewed Meds reviewed -RD following.
--- NOTE | 2019-12-17 12:00 | NUR ---
HOSPICE CONSULT GIVEN TO STATION ENGINEER SAPPHIRE.
--- NOTE | 2019-12-17 15:01 | MORECARE ---
CASE MANAGEMENT DISCHARGE SUMMARY PATIENT: LUCA CHIRINOS UNIT: [id number] ADM DATE: 12/07/19 AGE: 84 : 35 SEX: M ROOM/BED: D[facility] AUTHOR: BLU,DOC PHYSICIAN: REFERRING PHYSICIAN: EFRA HOFFMAN MD DATE OF SERVICE: 12/17/19 Discharge Plan Patient Name: LUCA CHIRINOS Facility: [facility]:[place] : 1935 Planned Disposition: Inpatient Rehab Anticipated Discharge Date: Discharge Date: Expected LOS: Initial Reviewer: [email or web address] Initial Review Date: 12/07/2019 Generated: 12/17/19 4:00 pm DCP- Discharge Planning Updated by [email or web address]: Abigail Roth on 12/09/19 4:[address] Patient Name: LUCA CHIRINOS Admission Status: ER Accout number: [id number] Admission Date: 12-07-2019 : 1935 Admission Diagnosis: Attending: EFRA HOFFMAN Current LOS: 2 Anticipated DC Date: Planned Disposition: Inpatient Rehab Primary Insurance: MEDICARE A & B Discharge Planning Comments: CM met with patient to complete initial dc planning assessment. CM educated patient on the CM role and verbal consent given by patient to complete assessment. CM verified patient's address, phone number, and emergency contact phone numbers. Patient lives at home independently. At discharge patient plans to return home and feels that his neighbor Tammi Brumfield [phone] can help take care of him. CM doesn't feel this is safe discharge at this time. CM suggested inpatient rehab and he agreed to see what physical therapy suggest. Patient states he has home 02, walker, cane, w/c, bedside commode and handicap accessible shower. CM will continue to follow and will assist as needed with dc plans/needs. Studio Owner: Abigail Roth DCPIA - Discharge Planning Initial Assessment Updated by [email or web address]: Abigail Roth on 12/09/19 5:51 pm * Is the patient Alert and Oriented? Yes * How many steps to enter\exit or inside your home? RAMP * PCP MARTELL * Pharmacy [facility] * Preadmission Environment Home Alone * ADLs Independent * Other Equipment WALKER, CANE, W/C, SHOWER HC ACCESS, BSC, HOME * List name and contact numbers for known caregivers / representatives who currently or will assist patient after discharge: TAMMI BRUMFIELD - FRIEND - [phone] ARUNA MONTGOMERY - [phone] * Verbal permission to speak to the caregivers and representatives has been obtained from the patient. Yes * Community resources currently utilized None * Additional services required to return to the preadmission environment? No * Can the patient safely return to the preadmission environment? Yes * Has this patient been hospitalized within the prior 30 days at any hospital? No External Providers External Provider: [facility] [facility] Next Contact Date: Service Request Date: Service Type: Resolution: Reviewer: Comments: Coverage Notice Reviewer: [email or web address] Ba Vo Notice Issued Date-Time: 12/07/2019 20:00 Notice Type: IM Admission Notice Notice Delivered To: Patient Relationship to Patient: Senior Mechanical Technician Name: Delivery Method: - Yamilex Days: Prior Verbal Notification: Recipient Understood Notice: Recipient Signature: Med Rec Note Co-signed by Attending: Coverage Notice Comment: ADMIT IMM ON CHART signed by the patient ON THE chart. Last DP export: 12/09/19 5:03 p Patient Name: LUCA CHIRINOS Page [phone] at 1501 All edits/amendments must be made on the electronic document DICTATION DATE: 12/17/19 1500 INSURANCE LOSS CONTROL SURVEYOR: BHARATHI 12/17/19 1500 RPT#: [id number] DC DATE: STATUS: ADM IN [facility] [address] [place] [address] END OF REPORT
--- NOTE | 2019-12-17 16:05 | NUR ---
RECEIVED PATIENT FROM ICU. SEDATED, RESTING COMFORTABLY. NO S/S OF ACUTE DISTRESS NOTED. ON 2L O2, NC. USING ACCESSORY MUSCLES TO BREATHE. AWAITING PAPERWORK FROM POA TO PUT PATIENT ON HOSPICE. PATIENT A DNR. LAGUNA CATHETER PRESENT. LEFT BELOW THE KNEE AMPUTATION. RIGHT LOWER EXTREMETY EDEMA, WEEPING. IV TO LEFT UPPER ARM, SL. SITE PATENT WITHOUT REDNESS OR SWELLING. PARTIAL AMPUTATIONS TO 3 FINGERS ON RIGHT HAND AND 3 FINGERS ON LEFT HAND. CALL LIGHT IN REACH. WILL CONTINUE WITH PLAN OF CARE.
--- NOTE | 2019-12-17 18:21 | NUR ---
RESTING COMFORTABLY IN BED. NO S/S OF ACUTE DISTRESS NOTED. CALL LIGHT IN REACH. WILL CONTINUE WITH PLAN OF CARE.
--- NOTE | 2019-12-17 20:15 | NUR ---
LYING IN BED WITH EYES CLOSED. MOANS WHEN STAFF MOVES PATIENT. SKIN TEARS NOTED TO BUE WITH BRUISING. DRSG NOTED TO LT HIP WITH BLOODY DRAINAGE NOTED AND BRUISING TO LT HIP. LT BKA. LAGUNA CATH PATENT AND DRAINING DARK YELLOW URINE. O2@ 2L/NC. MOUTH BREATHES. SALINE LOCK NOTED TO LT UPPER ARM. RESP LABORED, SHALLOW. CL IN REACH.
--- NOTE | 2019-12-18 03:52 | NUR ---
HAS BEEN ASLEEP ALL NIGHT. DRSG TO LT HIP IS SATURATED IN BLOOD. DRSG CHANGED AT THIS TIME. PIETER NOTED WITH BRUISING TO LT HIP. 4X4S AND ABD PAD APPLIED. PT MOANS WHEN TURNED. RESP LABORED. CL IN REACH.
--- NOTE | 2019-12-18 07:15 | NUR ---
PT RESTING COMFORTABLE IN BED WITH EYES CLOSED. CURRENTLY ON 2L VIA NC, HEAVY ABDOMINAL BREATHING. WILL CONT TO MONITOR.
[2019-12-18 09:06] VITALS: BP 133/47
--- NOTE | 2019-12-18 10:31 | MORECARE ---
CASE MANAGEMENT DISCHARGE SUMMARY PATIENT: LUCA PATEL UNIT: [id number] ADM DATE: 12/07/19 AGE: 84 : 35 SEX: M ROOM/BED: D.2238 AUTHOR: CONCHITA HURT PHYSICIAN: REFERRING PHYSICIAN: EFRA HOFFMAN MD DATE OF SERVICE: 12/18/19 Discharge Plan Patient Name: LUCA PATEL Facility: [facility]:[place] : 1935 Planned Disposition: Inpatient Rehab Anticipated Discharge Date: Discharge Date: Expected LOS: Initial Reviewer: [email or web address] Initial Review Date: 12/07/2019 Generated: 12/18/19 11:30 am Comments DCP- Discharge Planning Updated by [email or web address]: Abigail Roth on 12/18/19 9:[address] LATE ENTRY 12/17/19 CM received order for Hospice Consult. CM notified [facility] for Inpatient referral and sent records with lialynette Jackson. CM explained that the AARON Patel lives in [place] and phone numbers given [phone], . CM called to check status with Hospice around 1630. Hospice stated they are waiting on legal to be signed and sent back before they can admit patient. CM will continue to follow and assist as needed with discharge planning / needs. DCP- Discharge Planning Updated by [id number]: Abigail Roth on 12/09/19 4:[address] Patient Name: LUCA PATEL Admission Status: ER Accout number: [id number] Admission Date: 12-07-2019 : 1935 Admission Diagnosis: Attending: EFRA HOFFMAN Current LOS: 2 Anticipated DC Date: Planned Disposition: Inpatient Rehab Primary Insurance: MEDICARE A & B Discharge Planning Comments: CM met with patient to complete initial dc planning assessment. CM educated patient on the CM role and verbal consent given by patient to complete assessment. CM verified patient's address, phone number, and emergency contact phone numbers. Patient lives at home independently. At discharge patient plans to return home and feels that his neighbor Tammi Brumfield [phone] can help take care of him. CM doesn't feel this is safe discharge at this time. CM suggested inpatient rehab and he agreed to see what physical therapy suggest. Patient states he has home 02 / portal 02, walker, cane, w/c, bedside commode and handicap accessible shower. CM will continue to follow and will assist as needed with dc plans/needs. Hyperbaric Welder Diver: Abigail Roth DCPIA - Discharge Planning Initial Assessment Updated by [id number]: Abigail Gonzalez on 12/09/19 5:51 pm * Is the patient Alert and Oriented? Yes * How many steps to enter\exit or inside your home? RAMP * PCP MARTELL * Pharmacy [facility] * Preadmission Environment Home Alone * ADLs Independent * Other Equipment WALKER, CANE, W/C, SHOWER HC ACCESS, BSC, HOME 02 / PORTABLE 02 * List name and contact numbers for known caregivers / representatives who currently or will assist patient after discharge: TAMMI ANTHONY - FRIEND - [phone] ARNUA Cosme NEPHEW - [phone] * Verbal permission to speak to the caregivers and representatives has been obtained from the patient. Yes * Community resources currently utilized None * Additional services required to return to the preadmission environment? No * Can the patient safely return to the preadmission environment? Yes * Has this patient been hospitalized within the prior 30 days at any hospital? No Coverage Notice Reviewer: [email or web address] Ba Vo Notice Issued Date-Time: 12/07/2019 20:00 Notice Type: IM Admission Notice Notice Delivered To: Patient Relationship to Patient: Managed Care Provider Name: Delivery Method: - Yamilex Days: Prior Verbal Notification: Recipient Understood Notice: Recipient Signature: Med Rec Note Co-signed by Attending: Coverage Notice Comment: ADMIT IMM ON CHART signed by the patient ON THE chart. Last DP export: 12/17/19 2:01 p Patient Name: LUCA PATEL Page [phone] at 1031 All edits/amendments must be made on the electronic document DICTATION DATE: 12/18/19 1030 QUILL SKINNER: BHARATHI 12/18/19 1030 RPT#: [id number] DC DATE: STATUS: ADM IN [facility] [address] [place] [address] END OF REPORT
--- NOTE | 2019-12-19 08:48 | MORECARE ---
CASE MANAGEMENT DISCHARGE SUMMARY PATIENT: LUCA PATEL UNIT: [id number] ADM DATE: 12/07/19 AGE: 84 : 35 SEX: M ROOM/BED: D.2238 AUTHOR: CONCHITA HURT PHYSICIAN: REFERRING PHYSICIAN: EFRA HOFFMAN MD DATE OF SERVICE: 12/19/19 Discharge Plan Patient Name: LUCA PATEL Facility: [facility]:[place] : 1935 Planned Disposition: Inpatient Rehab Anticipated Discharge Date: Discharge Date: 12/18/2019 Expected LOS: 0 Initial Reviewer: [email or web address] Initial Review Date: 12/07/2019 Generated: 12/19/19 9:47 am Comments DCP- Discharge Planning Updated by [email or web address]: Abigail Roth on 12/18/19 9:[address] LATE ENTRY 12/17/19 CM received order for Hospice Consult. CM notified [facility] for Inpatient referral and sent records with liaison Manuel. CM explained that the AARON Patel lives in [place] and phone numbers given [phone], . CM called to check status with Hospice around 1630. Hospice stated they are waiting on legal to be signed and sent back before they can admit patient. CM will continue to follow and assist as needed with discharge planning / needs. DCP- Discharge Planning Updated by [email or web address]: Abigail Furr on 12/09/19 4:[address] Patient Name: LUCA PATEL Admission Status: ER Accout number: [id number] Admission Date: 12-07-2019 : 1935 Admission Diagnosis: Attending: EFRA HOFFMAN Current LOS: 2 Anticipated DC Date: Planned Disposition: Inpatient Rehab Primary Insurance: MEDICARE A & B Discharge Planning Comments: CM met with patient to complete initial dc planning assessment. CM educated patient on the CM role and verbal consent given by patient to complete assessment. CM verified patient's address, phone number, and emergency contact phone numbers. Patient lives at home independently. At discharge patient plans to return home and feels that his neighbor Tammi Brumfield [phone] can help take care of him. CM doesn't feel this is safe discharge at this time. CM suggested inpatient rehab and he agreed to see what physical therapy suggest. Patient states he has home 02, walker, cane, w/c, bedside commode and handicap accessible shower. CM will continue to follow and will assist as needed with dc plans/needs. Blueprinting And Photocopy Supervisor: Abigail Roth DCPIA - Discharge Planning Initial Assessment Updated by [email or web address]: Abigail Gonzalez on 12/09/19 5:51 pm * Is the patient Alert and Oriented? Yes * How many steps to enter\exit or inside your home? RAMP * PCP MARTELL * Pharmacy [facility] * Preadmission Environment Home Alone * ADLs Independent * Other Equipment WALKER, CANE, W/C, SHOWER HC ACCESS, BSC, HOME * List name and contact numbers for known caregivers / representatives who currently or will assist patient after discharge: TAMMI ANTHONY - FRIEND - [phone] ARUNA REYNAGA Ba BETOEW [phone] * Verbal permission to speak to the caregivers and representatives has been obtained from the patient. Yes * Community resources currently utilized None * Additional services required to return to the preadmission environment? No * Can the patient safely return to the preadmission environment? Yes * Has this patient been hospitalized within the prior 30 days at any hospital? No Coverage Notice Reviewer: [email or web address] Ba Vo Notice Issued Date-Time: 12/07/2019 20:00 Notice Type: IM Admission Notice Notice Delivered To: Patient Relationship to Patient: Automotive Exhaust Emissions Technician Name: Delivery Method: - Yamilex Days: Prior Verbal Notification: Recipient Understood Notice: Recipient Signature: Med Rec Note Co-signed by Attending: Coverage Notice Comment: ADMIT IMM ON CHART signed by the patient ON THE chart. Last DP export: 12/18/19 9:31 a Patient Name: LUCA PATEL Page [phone] at 0848 All edits/amendments must be made on the electronic document DICTATION DATE: 12/19/19846 LOAN ASSOCIATE: BHARATHI 12/19/19846 RPT#: [id number] DC DATE:12/18/19 STATUS: DIS IN [facility] [address] [place] [address] END OF REPORT
--- NOTE | 2019-12-19 11:25 | EC ---
PATIENT:LUCA CHIRINOS DATE OF SERVICE: 12/07/19 SEX: M MEDICAL RECORD: [id number] DATE OF : [birth year] LOCATION:D[facility] [id number] AGE OF PATIENT: 84 ADMISSION DATE: 12/07/19 REFERRING PHYSICIAN: INTERPRETING PHYSICIAN: TIMMY RODRIGUEZ MD ECHOCARDIOGRAM REPORT ECHO CHARGES 4 ECHO COMPLETE Date: 12/08/19 CLINICAL DIAGNOSIS: CAF, HTN ECHOCARDIOGRAPHIC MEASUREMENTS (adult normal given) AC root (d.<3.7cm) 3.1 cm LV Septum d (<1.2 cm> 1.4 cm Valve Excursion 1.4 cm LV Septum (systole) 2.3 cm Left Atria (s.<4.0cm> 6.1 cm LVPW d(<1.2cm) 1.0 cm RV (d.<2.3cm) 3.0 cm LVPW (sytole) 1.6 cm LV diastole(<5.6CM) 5.4 cm MV E-F(>70mm/sec) cm LV systole 3.1 cm LVOT Diameter 1.5 cm MV exc.(>10mm) cm Est.ejection fraction (50-75%) % DOPPLER: LVIT cm/sec A 26 cm/sec E 91 cm/sec LA cm/sec RVSP 61.8 mmHg LVOT 83 cm/sec AOP1/2T m/s Asc. Ao 180 cm/sec RVOT 75 cm/sec RA cm/sec PA 85 cm/sec AV Gradient Peak 13.0 mmHg AV Mean 6.1 mmHg AV Area 0.8 cm MV Gradient Peak 4.8 mmHg MV Mean 1.4 mmHg MV Area cm COMMENTS: Meter Engineer: Ashley [facility] Closing Supervisor: 1 Dr. Rodriguez TAPE# PACS Pericardial Effusion Y DATE OF SERVICE: 12/08/2019 FINDINGS: 1. Left ventricular chamber size is within normal limits. Left ventricular systolic function is lower limits of normal at 45% to 50%. 2. Left atrium, right atrium, and right ventricle chamber sizes are severely dilated. 3. Valvular structures: Aortic valve has calcific aortic sclerosis, but mild aortic stenosis. Remaining valvular structures have normal structure and motion. ECHOCARDIOGRAM REPORT [id number] LUCA CHIRINOS 4. Doppler interrogation reveals mild aortic insufficiency, mild mitral regurgitation, severe tricuspid regurgitation, no other valvular insufficiency or stenosis. Pulmonary systolic pressure is markedly elevated estimated at 62 mmHg. 5. Large pericardial effusion is present. There, however, is no evidence of right atrial or right ventricular diastolic collapse or tamponade at this point. 6. No evidence of left ventricular thrombus. TRANSINT:[id number] Voice Confirmation ID: [id number] DOCUMENT ID: [id number] TIMMY RODRIGUEZ MD at 1125 CC: [id number] DICTATION DATE: 12/08/19 1426 PAYROLL HUMAN RESOURCES ASSISTANT: 12/08/19 1729 DIS IN 12/18/19 [facility] [address] [place] [address]
[2019-12-21 13:08] LABS: FUNGUS CULTURE RESULT 1 Candida albicans (()); FUNGUS MYCOLOGY CULTURE Preliminary report (())
[2019-12-21 13:08] LABS: FUNGUS CULTURE RESULT 1 Candida albicans (()); FUNGUS MYCOLOGY CULTURE Preliminary report (())
== END 2019-12-18 11:23 | disposition hospice, inpatient (51) | DRG 469 ==
LOC: D.ER 16:59 → D.M3 20:17 → D.CVICU 20:17 → D.MS 12-17 16:01
PROVIDERS: Emergency Medicine; Family Medicine; Internal Medicine Nephrology; Internal Medicine Pulmonary Disease; Orthopaedic Surgery; ADMIT Family Medicine; ATTEND Family Medicine
PROC: 0SRS0JZ Replacement of Left Hip Joint, Femoral Surface with Synthetic Substitute, Open Approach (ICD-10-PCS; principal; 2019-12-08 14:30)
PROC: 5A1945Z Respiratory Ventilation, 24-96 Consecutive Hours (ICD-10-PCS; 2019-12-12)
PROC: 0BH17EZ Insertion of Endotracheal Airway into Trachea, Via Natural or Artificial Opening (ICD-10-PCS; 2019-12-12)
PROC: 0B9J8ZX Drainage of Left Lower Lung Lobe, Via Natural or Artificial Opening Endoscopic, Diagnostic (ICD-10-PCS; 2019-12-14)
PROC: 0B9F8ZX Drainage of Right Lower Lung Lobe, Via Natural or Artificial Opening Endoscopic, Diagnostic (ICD-10-PCS; 2019-12-14)
DX: S72.002A Fracture of unspecified part of neck of left femur, initial encounter for closed fracture (principal); J96.21 Acute and chronic respiratory failure with hypoxia; I50.23 Acute on chronic systolic (congestive) heart failure; I48.20 Chronic atrial fibrillation, unspecified; N17.9 Acute kidney failure, unspecified; J81.1 Chronic pulmonary edema; G93.1 Anoxic brain damage, not elsewhere classified; W19.XXXA Unspecified fall, initial encounter; E78.5 Hyperlipidemia, unspecified; Z89.512 Acquired absence of left leg below knee; I11.0 Hypertensive heart disease with heart failure; Z95.0 Presence of cardiac pacemaker; Z66 Do not resuscitate; I73.9 Peripheral vascular disease, unspecified

== ENCOUNTER 2019-12-18 11:32 | Inpatient (IN) | payer OTHER ==
[~2019-12-18] VITALS: Ht 180.3 cm; Wt 75.0 kg
[~2019-12-18 11:32] MED LIST: BYSTOLIC10 MG PO; FLOMAX0.4 MG PO; FUROSEMIDE20 MG PO; LISINOPRIL10 MG PO; PRADAXA150 MG PO; PRAVACHOL20 MG PO; PROCARDIA XL60 MG PO; ZYLOPRIM100 MG PO
--- NOTE | 2019-12-18 12:52 | NUR ---
PT SWITCHED TO HOSPICE STATUS. ADMINISTERED ATIVAN AND MORPHINE PER MINIBUS DRIVER MICHEL OBRIEN'S INSTRUCTOR. WILL CONT TO MONITOR.
--- NOTE | 2019-12-18 13:20 | NUR ---
DRESSING TO LEFT HIP CHANGED.
[2019-12-18 18:22] VITALS: BP 133/47; BMI 23.0
--- NOTE | 2019-12-18 19:50 | NUR ---
PT LYING IN BED RSTING WITH EYES CLOSED. RESPIRATIONS 28 AND SHALLOW. CALL LIGHT WITH IN REACH. WILL CONTINUE TO MONITOR
[2019-12-18 20:00] VITALS: BP 123/58
--- NOTE | 2019-12-18 22:50 | NUR ---
MOUTH CARE DONE. SOME GARGLING NOTED. CALL LIGHT WITH IN REACH. WILL CONTINUE TO MONITOR
--- NOTE | 2019-12-18 23:10 | NUR ---
PT LYING IN BED RESTING WITH EYES CLOSED. PRN PAIN MEDICATION GIVEN AND ATIVAIN. PT SEEMED TO BE HURTING USING THHE FACIAL PAIN SCALE. CALL LIGHT WITH IN REACH WILL CONTIUE TO MONITOR.
--- NOTE | 2019-12-19 03:15 | NUR ---
PT REPOSITONED FOR COMFORT. CALL LIGHT WITH IN REACH. MOUTH CARE PROFORMED. CALL LIGHT WITH IN REACH. WILL CONTINUE TO MONITOR
--- NOTE | 2019-12-19 04:23 | NUR ---
I have reviewed this patient and I concur with the Shift Assessment completed by the Licensed Practical Nurse today this shift.
--- NOTE | 2019-12-19 05:17 | NUR ---
I have reviewed this patient and I concur with the Shift Assessment completed by the Licensed Practical Nurse today this shift.
--- NOTE | 2019-12-19 06:01 | NUR ---
prn pain medication and ativan given for pain. will continue to monitor.
--- NOTE | 2019-12-19 06:28 | NUR ---
MOUTH CARE DONE. PT REPOSITIONED FOR COMFORT. PT HAS SOME GARGLING NOTED. CALL LIGHT WITH IN REACH. WILL CONTINUE TO MONITOR
--- NOTE | 2019-12-19 07:27 | NUR ---
PT UP RIGHT IN BED WITH EYES CLOSED. PT SEEMS COMFORTABLE BY LOOKING AT FACIAL EXPRESSION, RELAXED. RESPIRATIONS 37, SHALLOW. PT HAS SOME GARGLING SOUNDS NOTED. PILLOWS AND CHUCKS UNDER BOTH ARMS FOR COMFORT AND TO CATCH DRAINAGE FROM ARMS DUE TO EDEMA. ASSESSMENT PERFORMED AT THIS TIME. PT HAS DRESSING NOTED TO LEFT HIP. DRESSING WAS CHANGED LAST NIGHT VIA NIGHT NURSE. PT IS ON 2L OF O2 VIA NASAL CANNULA. 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 PT DOES NOT HAVE AN IV. WILL CONTINUE TO MONITOR.
[2019-12-19 08:24] VITALS: BP 138/56
--- NOTE | 2019-12-19 08:49 | MORECARE ---
CASE MANAGEMENT DISCHARGE SUMMARY PATIENT: LUCA CHIRINOS UNIT: [id number] ADM DATE: 12/18/19 AGE: 84 : 35 SEX: M ROOM/BED: D.2238 AUTHOR: CONCHITA HURT PHYSICIAN: REFERRING PHYSICIAN: JACI GOYAL MD DATE OF SERVICE: 12/19/19 Discharge Plan Patient Name: LUCA CHIRINOS [facility] [facility] 1935 Planned Disposition: Anticipated Discharge Date: Discharge Date: Expected LOS: Initial Reviewer: [email or web address] Initial Review Date: 12/19/2019 Generated: 12/19/19 9:48 am Patient Name: LUCA CHIRINOS Page [phone] at 0849 All edits/amendments must be made on the electronic document DICTATION DATE: 12/19/1948 REGULATORY TECHNICIAN: BHARATHI 12/19/1948 RPT#: [id number] DC DATE: STATUS: ADM IN [facility] [address] [place] [address] END OF REPORT
--- NOTE | 2019-12-19 08:55 | MORECARE ---
CASE MANAGEMENT DISCHARGE SUMMARY PATIENT: LUCA PATEL UNIT: [id number] ADM DATE: 12/18/19 AGE: 84 : 35 SEX: M ROOM/BED: D.2238 AUTHOR: CONCHITA HURT PHYSICIAN: REFERRING PHYSICIAN: JACI GOYAL MD DATE OF SERVICE: 12/19/19 Discharge Plan Patient Name: LUCA PATEL [facility] [facility] 1935 Planned Disposition: Anticipated Discharge Date: Discharge Date: Expected LOS: Initial Reviewer: [email or web address] Initial Review Date: 12/19/2019 Generated: 12/19/19 9:55 am Comments DCP- Discharge Planning Updated by [email or web address]: Nimisha Maria on 12/19/19 7:[address] Patient Name: LUCA PATEL Admission Status: Elective Accout number: [id number] Admission Date: 12-18-2019 : 1935 Admission Diagnosis: Attending: JACI GOYAL Current LOS: 1 Anticipated DC Date: Planned Disposition: Primary Insurance: [facility] Discharge Planning Comments: Patient is inpatient Hospice. POA is Amanda Patel. Amanda lives in [place] and her phone number is [phone] or [phone]. Occupational Rehabilitation Aide: Nimisha Maria Last DP export: 12/19/19 7:49 a Patient Name: LUCA PATEL Page [phone] at 0855 All edits/amendments must be made on the electronic document DICTATION DATE: 12/19/19 0855 BAND AID MACHINE OPERATOR: BHARATHI 12/19/19 0855 RPT#: [id number] DC DATE: STATUS: ADM IN [facility] [address] [place] [address] END OF REPORT
--- NOTE | 2019-12-19 09:23 | NUR ---
ORAL CARE PERFORMED. REPOSITIONED PT FOR COMFORT. PT SEEMS TO BE PAIN FREE BASED ON FACE SCALE. WILL CONTINUE TO MONITOR.
--- NOTE | 2019-12-19 09:34 | NUR ---
I have reviewed this patient and I concur with the Shift Assessment completed by the Licensed Practical Nurse today this shift.
--- NOTE | 2019-12-19 10:27 | NUR ---
PT RESTING UP RIGHT IN BED WITH EYES CLOSED. STILL APPEARS TO BE COMFORTABLE LOOKING AT FACIAL EXPRESSION. BREATHING IS STILL SHALLOW AND UNEVEN. WILL CONTINUE TO MONITOR.
[2019-12-19 11:01] VITALS: Ht 180.3 cm; Wt 75.0 kg
--- NOTE | 2019-12-19 11:13 | NUR ---
REPOSITIONED PT FOR COMFORT. CHANGED EH PADS UNDER BOTH ARMS DUE TO WEEPING. PT URINE OUTPUT HAS NO CHANGED FROM THIS MORNING. SEEMS TO BE COMOFORTABLE STILL, UP RIGHT WITH EYES CLOSED. RESPIRATIONS SHALLOW AND UNEVEN. WILL CONTINUE TO MONITOR.
--- NOTE | 2019-12-19 12:03 | NUR ---
[facility] NURSE, MICHEL, INSTRUCTED FOR NURSE TO TITRATE OXYGEN FROM 2L TO 1L THEN TO TAKE PT OFF COMPLETELY. OXYGEN HAS BEEN TITRATED.
--- NOTE | 2019-12-19 12:40 | NUR ---
WENT TO PT ROOM TO CHECK ON PATIENT, PATIENT UNRESPONSIVE, NO PULSE PALPABLE. PT IS A DNR. CONTACTED HOSPICE AND PLACED APPROPRIATE SHEET ON PT DOOR.
--- NOTE | 2019-12-19 14:00 | NUR ---
SPOKE WITH PETAR ABOUT PTAmbrosio [facility] AND [facility] RETRIEVED PATIENT AND TRANSPORTED HIM TO THE HOME.
--- NOTE | 2019-12-20 12:43 | MORECARE ---
CASE MANAGEMENT DISCHARGE SUMMARY PATIENT: LUCA PATEL UNIT: [id number] ADM DATE: 12/18/19 AGE: 84 : 35 SEX: M ROOM/BED: D.2238 AUTHOR: CONCHITA HURT PHYSICIAN: REFERRING PHYSICIAN: JACI GOYAL MD DATE OF SERVICE: 12/20/19 Discharge Plan Patient Name: LUCA PATEL Facility: [facility]:[place] : 1935 Planned Disposition: Anticipated Discharge Date: Discharge Date: 12/19/2019 Expected LOS: Initial Reviewer: [email or web address] Initial Review Date: 12/19/2019 Generated: 12/20/19 1:43 pm Comments DCP- Discharge Planning Updated by [email or web address]: Nimisha Maria on 12/19/19 7:[address] Patient Name: LUCA PATEL Admission Status: Elective Accout number: [id number] Admission Date: 12-18-2019 : 1935 Admission Diagnosis: Attending: JACI GOYAL Current LOS: 1 Anticipated DC Date: Planned Disposition: Primary Insurance: [facility] Discharge Planning Comments: Patient is inpatient Hospice. POA is Amanda Patel. Amanda lives in [place] and her phone number is [phone] or [phone]. Generator Repairer: Nimisha Maria Last DP export: 12/19/19 7:55 a Patient Name: LUCA PATEL Page [phone] at 1243 All edits/amendments must be made on the electronic document DICTATION DATE: 12/20/19 1243 DRYWALL STRIPPER: DM 12/20/19 1243 RPT#: [id number] DC DATE:12/19/19 STATUS: DIS IN [facility] [id number] [place] [address] END OF REPORT
== END 2019-12-19 14:00 | DRG 951 ==
LOC: D.MS 11:32
PROVIDERS: ADMIT Legal Medicine; ATTEND Legal Medicine
DX: Z51.5 Encounter for palliative care (principal)